=== PATIENT | female | born 1990 | race Two or more races ===

== ENCOUNTER 2016-10-19 20:45 | Emergency (ER) | payer OTHER ==
[~2016-10-19] VITALS: Ht 154.9 cm; Wt 78.0 kg
[2016-10-19 20:56] VITALS: BP 132/81
[2016-10-19 21:41] LABS: BILIRUBIN,URINE NEGATIVE (NEG); GLUCOSE,URINE NEGATIVE (NEG); NITRITE,URINE NEGATIVE (NEG); PROTEIN,URINE 30 mg/dL (NEG-TRACE); UROBILINOGEN,URINE 0.2 mg/dL (0.2 mg/dL)
[2016-10-19 21:49] LABS: RBC,URINE 0 /HPF (0-2)
[2016-10-19 21:50] LABS: BACTERIA,URINE MOD /HPF (0-FEW); SQUAMOUS EPITHELIAL CELL,UR MOD /LPF
[2016-10-19] MEDS ORDERED: DIAZEPAM 5 MG TABLET PO ONE (22:00)
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
[2016-10-19] MEDS ORDERED: NAPR250T2 PO (22:40)
[2016-10-19] MEDS ORDERED: CYCL10TA2 PO (22:40)
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
== END 2016-10-19 22:49 | disposition home or self-care (01) ==
LOC: ER 20:45
DX: S66.912A Strain of unspecified muscle, fascia and tendon at wrist and hand level, left hand, initial encounter (principal); M54.5 Low back pain; V49.9XXA Car occupant (driver) (passenger) injured in unspecified traffic accident, initial encounter; Y93.89 Activity, other specified; Y99.8 Other external cause status; Y92.89 Other specified places as the place of occurrence of the external cause
CPT/HCPCS: 73110; 81001; 81025; 84703; 99285-25